=== PATIENT | male | born 1960 | race Caucasian/White ===

== ENCOUNTER 2018-11-15 09:46 | Emergency (ER) | payer BC ==
[2018-11-15 10:37] VITALS: BP 137/91
--- NOTE | 2018-11-15 11:25 | UC ---
Skin Complaint HPI - HPI Summary HPI Summary: 58 yo diabetic with several months of rash on lower extremities, which began as pustules in a follicular distribution (reviewed photos from 6 months ago). Has tried triamcinolone as well as calamine without relief of rash. Currently has multiple dry crusts over both lower legs. FH: father with psoriasis. - History of Current Complaint Chief Complaint: UCSkin Time Seen by Provider: 11/15/18 11:06 Stated Complaint: RASH ON BOTH LEGS Hx Obtained From: Patient, Family/Production Supv - here with his Onset/Duration: Gradual Onset, Lasting Weeks Timing: Constant Onset Severity: Moderate Current Severity: Moderate Pain Intensity: 0 Location: Diffuse, Other - both lower legs, scalp, some across upper chest. Character: Pruritus - mild Aggravating Factor(s): Nothing Alleviating Factor(s): Nothing Associated Signs & Symptoms: Positive: Negative - Allergy/Home Medications Allergies/Adverse Reactions: Allergies Allergy/AdvReac Type Severity Reaction Status Date / Time No Known Allergies Allergy Verified 11/15/18 10:24 Home Medications: Home Medications Aspirin EC TAB* [Ecotrin EC Low Dose 81 MG*] 81 mg PO QAM 11/15/18 [History Confirmed 11/15/18] Canagliflozin (NF) [Invokana (NF)] 200 mg PO QAM 11/15/18 [History Confirmed ] Gabapentin CAP(*) [Neurontin 300 CAP(*)] 300 mg PO BID 11/15/18 [History Confirmed 11/15/18] Lansoprazole [Prevacid] 30 mg PO QPM 11/15/18 [History Confirmed 11/15/18] Lisinopril/Hydrochlorothiazide [Lisinopril-Hctz 20-12.5 mg Tab] 1 tab QAM [History Confirmed 11/15/18] Meloxicam [Qmiiz Odt] 15 mg PO QPM 11/15/18 [History Confirmed 11/15/18] Simvastatin [Zocor] 20 mg PO QPM 11/15/18 [History Confirmed 11/15/18] amLODIPine TAB* [Norvasc 5 mg TAB*] 10 mg PO QAM 11/15/18 [History Confirmed ] metFORMIN* [Glucophage 1000 MG TAB *] 1,000 mg BID 11/15/18 [History Confirmed 11/15/18] PMH/Surg Hx/FS Hx/Imm Hx Endocrine History: Diabetes Cardiovascular History: Hypertension - Surgical History Surgical History: Yes Surgery Procedure, Year, and Place: TONSILLECTOMY 45 YEARS AGO [place]. RIGHT thumb - Family History Known Family History: Positive: Cardiac Disease, Hypertension, Diabetes, Other - father has psoriasis - Social History Alcohol Use: None Substance Use Type: None Smoking Status (MU): Former Smoker Amount Used/How Often: 1 ppd When Did the Patient Quit Smoking/Using Tobacco: 03/06/18 - Immunization History Most Recent Influenza Vaccination: jan 2016 Most Recent Tetanus Shot: 2011 Review of Systems All Other Systems Reviewed And Are Negative: Yes Constitutional: Positive: Negative, Other - diabetes control overall ok--a1c around 7.8 Skin: Positive: Rash - see HPI Eyes: Positive: Negative. Negative: Eye Redness ENT: Positive: Negative Respiratory: Positive: Negative Cardiovascular: Positive: Negative Genitourinary: Positive: Negative Motor: Positive: Negative Neurovascular: Positive: Negative Musculoskeletal: Positive: Negative Neurological: Positive: Negative Psychological: Positive: Negative Is Patient Immunocompromised?: No Physical Exam Triage Information Reviewed: Yes Appearance: Well-Appearing, Obese Vital Signs: Initial Vital Signs Temp 98.3 F 11/15/18 10:29 Pulse 77 11/15/18 10:29 Resp 16 11/15/18 10:29 BP 137/91 11/15/18 10:29 Pulse Ox 98 11/15/18 10:29 Eyes: Positive: Conjunctiva Clear ENT: Positive: Pharynx normal Respiratory: Positive: Lungs clear, Normal breath sounds Cardiovascular: Positive: RRR, No Murmur Male Genital Exam: Positive: High Riding Prostate Neurological Exam: Normal Neurological: Positive: Alert Psychological Exam: Normal Skin Exam: Other - numerous crusts both lower extremities in follicular pattern , no pustules or vesicles. Scattered papules in hairline, across anterior chest. Left knee with deeply cursted patch of skin with deep scale c/w psoriasis. Course/Dx - Course Course Of Treatment: cephalexin for likely Staph infection associated with underlying folliculitis, possible psoriasis. - Differential Diagnoses - Skin Complaint Differential Diagnoses: Cellulitis, Contact Dermatitis, MRSA - Diagnoses Provider Diagnosis: Impetigo, Folliculitis Discharge ED - Sign-Out/Discharge Documenting (check all that apply): Patient Departure All imaging exams completed and their final reports reviewed: No Studies - Discharge Plan Condition: Good Disposition: HOME Prescriptions: cephALEXin [Keflex] 500 mg PO BID #20 capsule Patient Education Materials: Folliculitis (ED) Referrals: Emeka Banerjee MD [Primary Care Provider] - Katrin Alexander [Medical Doctor] - Additional Instructions: Begin use of cephalexin for treatment of infection component of rash, but I suspect that there is possibly underlying psoriasis. You might try use of over the counter skin lubricant such as Psorzema, which should also help to decrease crusts. I suggest evaluation by dermatology for evaluation of possible psoriasis. - Billing Disposition and Condition Condition: GOOD Disposition: Home
== END 2018-11-15 11:35 | disposition home or self-care (01) ==
LOC: UCCORT 09:46
DX: L01.00 Impetigo, unspecified (principal); L73.9 Follicular disorder, unspecified; E11.9 Type 2 diabetes mellitus without complications; Z79.84 Long term (current) use of oral hypoglycemic drugs; I10 Essential (primary) hypertension; Z87.891 Personal history of nicotine dependence
CPT/HCPCS: 99212; G0463